=== PATIENT | female | born 1945 | race African-American/Black ===

== ENCOUNTER 2018-05-10 05:24 | Emergency (ER) | payer MEDICARE, MEDICAID ==
[~2018-05-10] VITALS: Ht 160 cm; Wt 61.0 kg
[~2018-05-10 05:24] MED LIST: ALEN70TA46 PO; ASPI-1159 PO; BUSP15TA3 PO; CHOL20004 PO; PARO-41 PO
[2018-05-10] MEDS ORDERED: ONDANSETRON HCL 4MG/2ML INJ IV STA (05:46)
[2018-05-10] MEDS ORDERED: SODIUM CHLORIDE 0.9% 1,000 ML IV ONE (05:46)
[2018-05-10 06:24] LABS: HEMOGLOBIN. 14.8 g/dL (12.0-16.0); INR 1.1; MEAN CORPUSCULAR HEMOGLOBIN 32.7 pg (28.0-32.0); MEAN CORPUSCULAR VOLUME 97.1 fL (81.0-99.0); PLATELET 202 x1000/uL (130-400); PROTHROMBIN TIME 10.7 sec (9.1-11.1); RED BLOOD CELL COUNT 4.53 mill/uL (4.2-5.4); RED CELL DISTRIBUTION WIDTH 14.3 % (11.6-14.6)
[2018-05-10 06:28] LABS: CHLORIDE 109 mEq/L (98-107)
[2018-05-10] MEDS ORDERED: MAGNESIUM/ALUMINUM HYDROXIDE/SIMETHICONE 30ML UDC PO ONE (06:30)
[2018-05-10] MEDS ORDERED: FAMOTIDINE 20MG/2ML VIAL IV ONE (06:30)
[2018-05-10 07:20] LABS: CLARITY URINE CLEAR (CLEAR); COLOR URINE YELLOW (YELLOW); KETONES URINE NEGATIVE (NEGATIVE); LEUKOCYTE ESTERASE URINE NEGATIVE (NEGATIVE); NITRITE URINE NEGATIVE (NEGATIVE); OCCULT BLOOD URINE NEGATIVE (NEGATIVE); PH URINE 5.5 (4.5-8.0); PROTEIN URINE 2+ (NEGATIVE); SPECIFIC GRAVITY URINE 1.021 (1.005-1.030); UROBILINOGEN URINE 0.2 E.U./dL (0.2-1.0)
[2018-05-10 07:37] LABS: PLATELET ESTIMATE NORMAL
[2018-05-10] MEDS ORDERED: ONDANSETRON HCL 4MG/2ML INJ IV ONE (08:00)
[2018-05-10] MEDS ORDERED: METOCLOPRAMIDE HCL 10MG/2ML VIAL IV ONE (08:45)
[2018-05-10 10:55] VITALS: BP 104/65
== END 2018-05-10 11:19 | disposition home or self-care (01) ==
LOC: ER 05:24
DX: R11.2 Nausea with vomiting, unspecified (principal); R10.13 Epigastric pain; I10 Essential (primary) hypertension; Z79.82 Long term (current) use of aspirin
CPT/HCPCS: 36415; 74176; 80053; 81003; 85025; 85610; 96361; 96374; 96375; 99285; J2405; J2765; J3490; J7030

== ENCOUNTER 2022-10-06 01:14 | Emergency (ER) | payer MEDICARE, MEDICAID ==
[~2022-10-06] VITALS: Ht 160 cm; Wt 68.0 kg
[~2022-10-06 01:14] MED LIST changes: -ALEN70TA46 PO; +ALEN70TA79 PO; -ASPI-1159 PO; +ASPI-1497 PO
[2022-10-06] MEDS ORDERED: MORPHINE SULFATE 4 MG/ML CPJ (NOT FOR IM USE) IV STA (02:21)
[2022-10-06] MEDS ORDERED: ONDANSETRON HCL 4MG/2ML INJ IV STA (02:21)
[2022-10-06 03:00] LABS: BASOPHILS % 0.3 % (0.0-2.0); EOSINOPHILS % 0.7 % (0.0-5.0); HEMOGLOBIN. 13.9 g/dL (12.0-16.0); LYMPHOCYTES % 15.8 % (20.0-50.0); MEAN CORPUSCULAR HEMOGLOBIN 32.2 pg (28.0-32.0); MEAN PLATELET VOLUME 8.2 fl (7.4-10.4); MONOCYTES % 3.5 % (2.0-8.0); NEUTROPHILS % 79.7 % (40.0-76.0); PLATELET 196 x1000/uL (130-400); RED BLOOD CELL COUNT 4.31 mill/uL (4.2-5.4); RED CELL DISTRIBUTION WIDTH 14.4 % (11.6-14.6)
[2022-10-06 03:05] LABS: CHLORIDE 110 mEq/L (98-107)
[2022-10-06] MEDS ORDERED: IOHEXOL-300 100 ML BOTTLE ONE (04:24)
[2022-10-06 06:00] VITALS: BP 126/61
[2022-10-06] MEDS ORDERED: PROT20 MT (06:18)
== END 2022-10-06 06:32 | disposition home or self-care (01) ==
LOC: ER 01:14
DX: R10.13 Epigastric pain (principal); I10 Essential (primary) hypertension; F41.9 Anxiety disorder, unspecified; J44.9 Chronic obstructive pulmonary disease, unspecified; F32.9 Major depressive disorder, single episode, unspecified; K21.9 Gastro-esophageal reflux disease without esophagitis; Z79.82 Long term (current) use of aspirin
CPT/HCPCS: 36415; 71045; 74177; 80053; 83605; 83690; 84484; 85025; 93005; 96374; 96375; 99285; J2270; J2405; Q9967